=== PATIENT | female | born 1990 | race Caucasian/White ===

== ENCOUNTER → 2019-03-29 10:36 | Outpatient (BNVA) | payer MEDICAID, SELFPAY | PROVIDERS: Family Provider Nurse Practitioner Family; PCP Nurse Practitioner Family; Visit Provider Nurse Practitioner Women's Health | DX: Z30.432 Encounter for removal of intrauterine contraceptive device (principal); N92.1 Excessive and frequent menstruation with irregular cycle; A74.9 Chlamydial infection, unspecified | CPT/HCPCS: 84443; 87491 ==

== ENCOUNTER → 2019-04-29 13:09 | Outpatient (BNVA) | payer SELFPAY | PROVIDERS: Family Provider Nurse Practitioner Family; PCP Nurse Practitioner Family; Referring Provider Obstetrics & Gynecology Female Pelvic Medicine and Reconstructive Surgery; Visit Provider Obstetrics & Gynecology Female Pelvic Medicine and Reconstructive Surgery | DX: N92.1 Excessive and frequent menstruation with irregular cycle (principal) | CPT/HCPCS: 85025 ==

== ENCOUNTER → 2019-05-07 13:20 | Outpatient (BNVA) | payer SELFPAY | PROVIDERS: Family Provider Nurse Practitioner Family; PCP Nurse Practitioner Family; Visit Provider Nurse Practitioner Women's Health | DX: A74.9 Chlamydial infection, unspecified (principal); N92.1 Excessive and frequent menstruation with irregular cycle | CPT/HCPCS: 87491; 87591; 87661 ==

== ENCOUNTER → 2019-05-22 13:16 | Outpatient (BNVA) | payer MEDICAID, SELFPAY | PROVIDERS: Family Provider Nurse Practitioner Family; PCP Nurse Practitioner Family; Visit Provider Family Medicine | DX: R04.2 Hemoptysis (principal) | CPT/HCPCS: 80053; 85025 ==

== ENCOUNTER → 2019-10-03 15:28 | Outpatient (BNVA) | payer MEDICAID, SELFPAY | PROVIDERS: Family Provider Nurse Practitioner Family; PCP Nurse Practitioner Family; Visit Provider Nurse Practitioner Women's Health | DX: A74.9 Chlamydial infection, unspecified (principal); N92.1 Excessive and frequent menstruation with irregular cycle; N93.9 Abnormal uterine and vaginal bleeding, unspecified; N76.0 Acute vaginitis; B96.89 Other specified bacterial agents as the cause of diseases classified elsewhere | CPT/HCPCS: 87491; 87591; 87661 ==

== ENCOUNTER → 2019-10-10 11:55 | Outpatient (BNVA) | payer MEDICAID, SELFPAY | PROVIDERS: Family Provider Nurse Practitioner Family; PCP Nurse Practitioner Family; Visit Provider Nurse Practitioner Women's Health | DX: A74.9 Chlamydial infection, unspecified (principal); N92.1 Excessive and frequent menstruation with irregular cycle; N93.9 Abnormal uterine and vaginal bleeding, unspecified; B96.89 Other specified bacterial agents as the cause of diseases classified elsewhere; N76.0 Acute vaginitis | CPT/HCPCS: 85025 ==

== ENCOUNTER 2019-11-12 06:40 | Day surgery (SDC) | payer MEDICAID, SELFPAY ==
[2019-11-07 12:10] VITALS: BMI 21.5
--- NOTE | 2019-11-07 12:39 | ANES.PREANE2 ---
Pre-Anesthetic Assessment Pre-Anesthetic Assessment: Height/Weight: Height 1.78 m Weight 68.039 kg Preop Diagnosis: Menorrhagia with irregular cycles Proposed Procedure: Operation Date: 11/12/19 09:10 Proposed Procedures p Hysteroscopy w/ Ablation w/ Novasure 56202 N92.1(Not Applicable) - Reuben Carey MD Familial anesthetic complications: None Social: Social History: Tobacco and No alcohol Exam: Pre-Anes Outpt Exam: alert, oriented x 3, clear to auscultation bilaterally and regular rate & rhythm Airway: Cervical ROM: WNL MP: 1 Dentition: Full Pulmonary: Pulmonary: None reported CV/HEM: CV/HEM: None reported : : None reported Hepatic: Hepatic: None reported GI: GI: None reported Metabolic: Metabolic: None reported Musc/skel: Musc/skel: None reported Neuropsych: Neuropsych: None reported Anesthetic Plan: ASA status: 1 Anesthesia: MAC Risk of > 500 ml blood loss (7ml/kg in children): No PFSH Anesthesia PFSH: Medical History (Updated 10/12/19 @ 19:37 by Reuben Carey MD) Chlamydia 12/2018- positive 03/2019- positive 06/2019- needs rescreen Menorrhagia with irregular cycle Surgical History History of adenoidectomy History of tubal ligation 10/2014 [place] teeth extracted Family History Grandfather Diabetes maternal Hyperlipidemia maternal Hypertension maternal Grandmother Diabetes maternal Hyperlipidemia maternal Hypertension maternal Thyroid condition maternal Uterine cancer maternal Breast cancer maternal and paternal Mother Thyroid condition Uterine cancer Family/Other Breast cancer Paternal aunt Social History Smoking and tobacco status: current every day smoker cigarettes Packs smoked per day: 2 Alcohol intake: current Alcohol intake frequency: holidays/special occasions only Substance/Drug Use: never Desire information about substance/drug rehabilitation?: No Data Anesthesia Cardiac Studies: No Data to Display
[2019-11-07 12:43] LABS: Basophils # 0.1 10^3/uL (0.0-0.1); Basophils % 1.1 %; Eosinophils # 0.1 10^3/uL (0.0-0.8); Eosinophils % 1.7 %; Hemoglobin 15.6 g/dL (11.5-15.3); Lymphocytes % 44.2 %; Mean Corpuscular HGB Conc 33.2 g/dL (30.0-36.0); Mean Corpuscular Hemoglobin 29.5 pg (28.0-34.0); Mean Corpuscular Volume 88.8 fL (81-99); Mean Platelet Volume 11.2 fL (7.4-10.4); Monocytes # 0.6 10^3/uL (0.2-0.9); Monocytes % 12.8 %; Neutrophils # 1.85 10^3/uL (1.8-7.7); Nucleated Red Blood Cells % 0 %; Platelet Count 222 10^3/cmm (130-400); Red Blood Count 5.29 10^6/uL (4.1-5.3); Red Cell Distribution Width 12.9 % (12.1-15.1); White Blood Count 4.6 10^3/uL (4.0-10.0)
--- NOTE | 2019-11-12 07:01 | P.ANESUD_ITS ---
Pre-Anesthetic Update Pre-Anesthetic Assessment: Date of Surgery/Procedure: 11/12/19 Preop Latrice gnosis: Menorrhagia with irregular cycles Proposed Procedure: Operation Date: 11/12/19 08:10 Proposed Procedures p Hysteroscopy w/ Ablation w/ Novasure 85937 N92.1(Not Applicable) - Reuben Carey MD Any changes to Pre-Anesthetic Assessment?: No Last Intake: NPO > 8 hrs Exam: Pre-Anes Outpt Exam: alert, oriented x 3, clear to auscultation bilaterally and regular rate & rhythm Cardiac Studies: No Data to Display
[2019-11-12 07:02] VITALS: BP 123/70; PULSE 72; RESP 18; TEMP 36.8; O2SAT 99
[2019-11-12 07:05] LABS: OR HCG Qualitative Urine Negative (Negative)
--- NOTE | 2019-11-12 07:08 | W.PM.OPSUD ---
Surgery/Procedure H&P Update DATE OF PROCEDURE: November 12, 2019 DATE H&P PERFORMED: 10/28/19 H&P UPDATE INFORMATION: I have reviewed H&P completed within last 30 days, I have examined patient prior to procedure, No changes to prior documentation and H[place] is in [facility] [place] date indicated PREOP DIAGNOSIS: Menorrhagia with irregular cycles PLANNED PROCEDURE: Operation Date: 11/12/19 08:10 Proposed Procedures p Hysteroscopy w/ Ablation w/ Novasure 77595 N92.1(Not Applicable) - Reuben Carey MD
[2019-11-12] MEDS: sodium chloride 0.9% 1,000 ML 30 ML IV (07:10)
[2019-11-12] MEDS: ketorolac 30 mg/mL INJ IVP (07:10)
--- NOTE | 2019-11-12 08:54 | P.OP_ITS ---
Operative Report Date of procedure: November 12, 2019 Pre-op Diagnosis: Menorrhagia with irregular cycles Post-op Diagnosis: Menorrhagia with irregular cycles Procedure Done: Hysteroscopy with endometrial ablation with NovaSure, Paracervical block Pathology: None. Surgeon: Reuben Carey Batch Or Continuous Still Operator: None Anesthesia: MAC and Other (Paracervical block with 2% lidocaine with epinephrine) Estimated blood loss (mL): 5 IV fluids (mL): 500 Complications: None Findings: Second-degree uterine prolapse with slightly retroflexed uterus. No palpable adnexal masses noted. Normal-appearing endometrial cavity. No polyps or masses noted. Both tubal ostia identified. Brief History: Patient is a 29-year-old white female 2, para 2-0-0-2, status post tubal ligation. She initially presented to the office on 12/26/2018 complaining of heavy vaginal bleeding that have been present for approximately 1 year. She would typically bleed every 2 weeks with the bleeding episodes lasting up to 12 days at a time. She was changing a tampon every 2-3 hours with passage of up to quarter sized clots. She reported that she would occasionally skip 1 to 2 months as well. She had a normal pelvic exam at that time. Ultrasound was performed in 12/2018 and was normal. She was initially treated with a Mirena IUD in 01/2019. With the IUD, she bled almost daily. She was treated with high-dose ibuprofen without improvement. She was then switched to OCPs in 03/2019 after removal of t he IUD and has continued to have heavy bleeding. She is now presenting for next step in treatment, being an endometrial ablation. Procedure: The patient was taken to the operating room where IV sedation was started. She was prepped and draped in the usual sterile fashion in the dorsal supine position with legs in Dionte style stirrups. Sequential compression boots had been placed prior to starting the case. Patient had voided just before coming to the operating room. Exam under anesthesia was performed and the patient was noted to have second- degree uterine prolapse with slightly retroflexed uterus. A weighted speculum was placed in the vagina and the cervix was grasped with a single-tooth tenaculum. A paracervical block was performed with a total of 12 mL of 2% lidocaine with epinephrine used. The cervix was serially dilated until a operative hysteroscope could be passed. Crystalloid solution was used as a distention media. The endometrial cavity was inspected and appeared normal. Both tubal ostia were identified. No masses or polyps noted. Using the NovaSure sound, endometrial cavity length was measured at 5 cm. The N ovaSure device was inserted and device was deployed. The device was moved up and down and left and right until no further with adjustment occurred. Uterine width was measured at 3.7 cm. Settings were entered in the NovaSure machine and wattage was set at [address] [place]. Cavity integrity check was performed and integrity confirmed. Device was then activated. Total treatment time was 37 seconds. Device was removed. The tenaculum was removed and there was minimal bleeding from the tenaculum site. Patient tolerated the procedure well. Sponge and needle counts were correct. DRAINS: None POSTOPERATIVE STATUS: The patient was transferred to the recovery room in satisfactory condition DISPOSITION: Discharge to home when criteria was met. FOLLOWUP APPOINTMENT: Followup appointment had been scheduled on 11/27/2019 in my office. MEDICATIONS: Tramadol 50 mg, 1 to 2 tablets every 6 hours as needed for pain, #10, 0 refills Ibuprofen 800 mg, 1 tablet 3 times a day as needed for pain, #30, 0 refills
[2019-11-12 09:06] VITALS: BP 102/54; PULSE 82; RESP 18; TEMP 36.1; O2SAT 100
[2019-11-12 09:25] VITALS: BP 113/70; PULSE 69; RESP 18; O2SAT 100
--- NOTE | 2019-11-12 12:02 | ANE.PACU2 ---
Inpatient post-anesthesia follow up: Airway intact: Yes Vital signs: Temperature 97.0 F Pulse Rate 69 Respiratory Rate 18 Blood Pressure 113/70 Pulse Oximetry 100 Oxygen Delivery Me thod Room Air Oxygen Flow Rate Fraction of Inspir ed Oxygen Hydration adequate: Yes Nausea and vomiting: No Pain level: 2 Mental status: Baseline
== END 2019-11-12 09:35 | disposition home or self-care (01) ==
PROVIDERS: PCP Nurse Practitioner Family; Visit Provider Obstetrics & Gynecology
PROC: 0U598ZZ Destruction of Uterus, Via Natural or Artificial Opening Endoscopic (ICD-10-PCS; CPT 58563; principal; 2019-11-12 08:10)
DX: N92.1 Excessive and frequent menstruation with irregular cycle (principal); G89.18 Other acute postprocedural pain; N81.2 Incomplete uterovaginal prolapse; Z98.51 Tubal ligation status; F17.210 Nicotine dependence, cigarettes, uncomplicated
CPT/HCPCS: 58563; 12345; 81025; 84703; 85025; 96374; J1100; J1885; J2250; J2405; J2704; J3010; J7030

== ENCOUNTER → 2020-10-16 10:14 | Outpatient (BNVA) | payer MEDICAID, SELFPAY | PROVIDERS: PCP Nurse Practitioner Family; Visit Provider Nurse Practitioner Women's Health | DX: R10.2 Pelvic and perineal pain (principal) | CPT/HCPCS: 76830; 87491; 87591; 87661 ==

== ENCOUNTER → 2020-11-12 10:29 | Outpatient (BNVA) | payer MEDICAID, SELFPAY | PROVIDERS: PCP Nurse Practitioner Family; Visit Provider Obstetrics & Gynecology | DX: R10.2 Pelvic and perineal pain (principal); Z20.822 Contact with and (suspected) exposure to COVID-19 | CPT/HCPCS: 87635 ==

== ENCOUNTER 2020-11-18 14:32 | Observation (INO) | payer MEDICAID, SELFPAY ==
[2020-11-17 13:23] VITALS: BMI 19.6
[2020-11-18] VITALS (22 sets, daily range): BP systolic 104–151; BP diastolic 60–91; PULSE 66–91; RESP 16–26; TEMP 36.2–36.8; O2SAT 97–100; BMI 19.6
[2020-11-18] MEDS: sodium chloride 0.9% 500 ML IV (11:00)
[2020-11-18] MEDS: scopolamine 1.5 Patch 1 PATCH TRANSDERMA (11:06)
[2020-11-18 11:08] LABS: OR HCG Qualitative Urine Negative (Negative)
[2020-11-18 11:24] LABS: Add Urine Microscopic? NO; Charge for UA Resulting for Rev
[2020-11-18] MEDS: sodium chloride 0.9% 1,000 ML 30 ML IV (11:29)
[2020-11-18 11:30] LABS: Basophils # 0.1 10^3/uL (0.0-0.1); Basophils % 1.5 %; Eosinophils # 0.1 10^3/uL (0.0-0.8); Hematocrit 47.3 % (37.0-47.0); Lymphocytes # 2.5 10^3/uL (0.8-4.8); Lymphocytes % 41.1 %; Mean Corpuscular HGB Conc 33.8 g/dL (30.0-36.0); Mean Corpuscular Hemoglobin 30.4 pg (28.0-34.0); Mean Corpuscular Volume 89.8 fl (81-99); Mean Platelet Volume 11.1 fL (7.4-10.4); Monocytes # 0.7 10^3/uL (0.2-0.9); Monocytes % 11.1 %; Neutrophils # 2.69 10^3/uL (1.8-7.7); Neutrophils % 44.1 %; Nucleated Red Blood Cells % 0 %; Platelet Count 242 10^3/cmm (130-400); Red Blood Count 5.27 10^6/uL (4.1-5.3); Red Cell Distribution Width 12.4 % (12.1-15.1); White Blood Count 6.1 10^3/uL (4.0-10.0)
[2020-11-18 11:34] LABS: Bilirubin Urine Neg (Negative); Blood Urine Neg (Negative); Glucose Urine UA Norm (Normal); Ketones Urine Negative (Negative); Leukocyte Esterase Urine Negative (Negative); Nitrate Urine Negative (Negative); Protein Urine Neg (Negative); Specific Gravity, Urine 1.005 (1.005-1.030); Urine Appearance Clear (CLEAR); Urine Color Straw (Yellow); Urobilinogen Urine Norm (Negative); pH Urine 7 (5-7)
[2020-11-18 11:47] LABS: Blood Urea Nitrogen 13 mg/dL (6-20); Calcium 9.2 mg/dL (8.5-10.5); Carbon Dioxide 28 mmol/L (22-29); Chloride 101 mmol/L (98-107); Glomerular Filtration Rate 118.2 mL/min (90-130); Glucose 80 mg/dL (65-115); Osmolality Calculated 285 mOsm/kg (285-295); Sodium 138 mmol/L (136-145)
[2020-11-18 11:55] LABS: Anion Gap 13.3 (5-19); Potassium 4.3 mmol/L (3.5-5.1)
--- NOTE | 2020-11-18 12:02 | ANES.PREANE2 ---
Pre-Anesthetic Assessment Pre-Anesthetic Assessment: Height/Weight: Height 1.78 m Weight 62.142 kg Temp Pulse Resp BP Pulse Ox 98.1 F 72 16 116/75 98 11/18/20 10:32 11/18/20 10:32 11/18/20 10:32 11/18/20 10:32 11/18/20 10:32 Preop Diagnosis: Chronic pelvic pain Proposed Procedure: Operation Date: 11/18/20 11:55 Proposed Procedures p Laparoscopy Diagnostic 32145 R10.2(Not Applicable) - Eduardo Parks MD Familial anesthetic complications: None Was Beta Britta taken within 24 hours: N/A Was Clonidine taken within 24 hours: N/A Last intake: Intake Last Liquid Date 11/17/20 Last Liquid Time 21:30 Last Solid Date 11/17/20 Last Solid Time 18:00 Social: Social History: Tobacco and No alcohol Exam: Pre-Anes Outpt Exam: alert, oriented x 3, clear to auscultation bilaterally and regular rate & rhythm Airway: Cervical ROM: WNL MP: 1 Dentition: Full Anesthetic Plan: ASA status: 1 Anesthesia: General Risk of > 500 ml blood loss (7ml/kg in children): No Meds/Allergies Current Medications: Current Medications Generic Name Dose Route Start Last Admin Trade Name Freq PRN Reason Stop Dose Admin Sodium Chloride 1,000 mls @ 30 ml s/hr 11/18/20 10:30 11/18/20 11:29 Sodium Chloride 0.9% IV 11/19/20 10:29 30 mls/hr .Q24H TERRY Administration PFSH Anesthesia PFSH: Medical History Chlamydia 12/2018- positive 03/2019- positive 06/2019- needs rescreen Menorrhagia with irregular cycle Surgical History History of adenoidectomy History of tubal ligation 10/2014 S/P endometrial ablation (11/12/19) Hysteroscopy with NovaSure endometrial ablation. Performed by Dr. Carey at [facility] [place], [place] teeth extracted Family History Grandfather Diabetes maternal Hyperlipidemia maternal Hypertension maternal Grandmother Diabetes maternal Hyperlipidemia maternal Hypertension maternal Thyroid condition maternal Uterine cancer maternal Breast cancer maternal and paternal Mother Thyroid condition Uterine cancer Family/Other Breast cancer Paternal aunt Social History Smoking and tobacco status: current every day smoker cigarettes Packs smoked per day: 2 Alcohol intake: current Alcohol intake frequency: holidays/special occasions only Other details last substance use: Denies drug use Data Anesthesia CBC & Chem 7: 11/18/20 10:48 11/18/20 10:48 Other Labs: Laboratory Results - last 48 hr 11/18/20 11/18/20 11/18/20 10:24 10:38 10:48 WBC 6.1 RBC 5.27 Hgb 16.0 H Hct 47.3 H MCV 89.8 MCH 30.4 MCHC 33.8 RDW 12.4 Plt Count 242 MPV 11.1 H Neut % (Auto) 44.1 Lymph % (Auto) 41.1 [place] % (Auto) 11.1 Eos % (Auto) 2.0 Baso % (Auto) 1.5 Neut # (Auto) 2.69 Lymph # (Auto) 2.5 [place] # (Auto) 0.7 Eos # (Auto) 0.1 Baso # (Auto) 0.1 Nucleated RBC % (auto) 0 Nucleated RBCs # 0.0 Sodium Potassium Chloride Carbon Dioxide Anion Gap BUN Creatinine GFR Calculation Glucose Calculated Osmolality Calcium Urine Color Straw Urine Appearance Clear Urine pH 7 Ur Specific [place] 1.005 Urine Protein Neg Urine Glucose (UA) Norm Urine Ketones Negative Urine Blood Neg Urine Nitrate Negative Urine Bilirubin Neg Urine Urobilinogen Norm Ur Leukocyte Esterase Negative Urine HCG, Qual Negative 11/18/20 10:48 WBC RBC Hgb Hct MCV MCH MCHC RDW Plt Count MPV Neut % (Auto) Lymph % (Auto) [place] % (Auto) Eos % (Auto) Baso % (Auto) Neut # (Auto) Lymph # (Auto) [place] # (Auto) Eos # (Auto) Baso # (Auto) Nucleated RBC % (auto) Nucleated RBCs # Sodium 138 Potassium 4.3 Chloride 101 Carbon Dioxide 28 Anion Gap 13.3 BUN 13 Creatinine 0.6 GFR Calculation 118.2 Glucose 80 Calculated Osmolality 285 Calcium 9.2 Urine Color Urine Appearance Urine pH Ur Specific [place] Urine Protein Urine Glucose (UA) Urine Ketones Urine Blood Urine Nitrate Urine Bilirubin Urine Urobilinogen Ur Leukocyte Esterase Urine HCG, Qual Cardiac Studies: No Data to Display
--- NOTE | 2020-11-18 12:23 | W.PM.OPSUD ---
Surgery/Procedure H&P Update DATE OF PROCEDURE: November 18, 2020 DATE H&P PERFORMED: 11/17/20 H&P UPDATE INFORMATION: I have reviewed H&P completed within last 30 days, I have examined patient prior to procedure and No changes to prior documentation PREOP DIAGNOSIS: Chronic pelvic pain PLANNED PROCEDURE: Operation Date: 11/18/20 11:55 Proposed Procedures p Laparoscopy Diagnostic 22265 R10.2(Not Applicable) - Eduardo Parks MD
--- NOTE | 2020-11-18 14:05 | P.OP_ITS ---
Operative Report Date of procedure: November 18, 2020 Pre-op Diagnosis: Chronic pelvic pain Post-op Diagnosis: Endometriosis Retroverted uterus Post-op Findings: Endometriosis Retroverted uterus Procedure Done: Diagnostic laparoscopy Pathology: none sent Surgeon: Eduardo Parks MD Estimated blood loss (mL): 100 IV fluids (mL): 800 Urine output (mL): 200 Complications: Uterine perforation. Condition: stable Disposition: PACU Brief History: Mrs. Rahman 30-year-old female status post tubal ligation with a history of chronic pelvic pain Procedure: After informed consent, the patient was taken to the operating room where general anesthesia was administered. The patient was examined under anesthesia and found to have a normal uterus with normal adnexa. She was placed in the dorsal lithotomy position and prepped and draped in sterile fashion. Pre- Procedure Time-Out verifying the correct patient identity, correct procedure verified with consent, correct site and side, correct patient position, availability of correct implants and any special equipment or requirements was performed and acknowledge by the OR team. A weighted speculum was placed in the vagina, and the anterior lip of cervix was grasped with the single toothed tenaculum. A uterine manipulator was advanced into the endocervical. Tenaculum was removed after uterine manipulator was secured. The speculum was removed from the vagina. An intraumbilical incision was made with a scalpel. While tenting up on the abdomen, a Verres needle with sleeve was admitted into the intra-abdominal cavity. A saline drop test was performed and noted to be within normal limits. Pneumoperitoneum was attained with 4 liters of carbon dioxide. The Verres needle was removed. A 5 mm trocar and sleeve were admitted into the abdomen and laparoscopic confirmation of location was achieved, A second incision was made 3 cm above the symphysis pubis, and a 5 mm trocar and sleeve were admitted into the abdomen under direct, laparoscopic visualization without complication. A survey revealed normal abdominal anatomy. A 5 mm blunt probe was advanced through the second trocar sleeve, and light manipulation of ovaries and uterus to assess the posterior aspects was performed. Butpelvic survey shows retroverted uterus, with serosal white endometriosis lesions and the tip of the uterine manipulator noted at the fundus. Normal left and right adnexa. After the uterine manipulator was withdraw the small perforation was plug with foam that controlled the minimal bleeding. The pelvis was irrigated and suction. Carbon dioxide was allowed to escape from the abdomen. The instruments were removed, and skin cover with a bandage. The instruments were removed from the vagina, and excellent hemostasis was noted. The patient tolerated the procedure well, and sponge, lap and needle count were correct times two. The patient taken to the recovery room in good condition.
[2020-11-18] MEDS: HYDROmorphone 1 mg/mL INJ 1 mL 0.5 MG IVP ×4 (14:16→14:46)
[2020-11-18] MEDS: ketorolac 30 mg/mL INJ IVP ×2 (15:37→20:59)
[2020-11-18] MEDS: HYDROcodone-acetaminophen 5-325 mg Tablet PO ×2 (15:37→20:58)
[2020-11-18] MEDS: nicotine 21 mg Patch 1 PATCH TRANSDERMA (15:39)
--- NOTE | 2020-11-18 17:00 | ANE.PACU2 ---
Inpatient post-anesthesia follow up: Airway intact: Yes Vital signs: Temperature 98.0 F Pulse Rate 65 Respiratory Rate 17 Blood Pressure 92/52 Pulse Oximetry 99 Oxygen Delivery Me thod Room Air Oxygen Flow Rate Fraction of Inspir ed Oxygen Hydration adequate: Yes Nausea and vomiting: No Pain level: 2 Mental status: Baseline
[2020-11-18] MEDS: dextrose 5%-lactated ringers 1,000 ML 125 ML IV (22:23)
[2020-11-19] MEDS: HYDROcodone-acetaminophen 5-325 mg Tablet PO ×2 (02:37→08:01)
[2020-11-19] MEDS: ketorolac 30 mg/mL INJ IVP (02:37)
[2020-11-19 03:51] VITALS: BP 92/52; PULSE 65; TEMP 36.7; O2SAT 99
[2020-11-19 05:26] LABS: Hematocrit 37.2 % (37.0-47.0); Hemoglobin 12.8 g/dL (11.5-15.3); Mean Corpuscular HGB Conc 34.4 g/dL (30.0-36.0); Mean Corpuscular Hemoglobin 30.4 pg (28.0-34.0); Mean Corpuscular Volume 88.4 fl (81-99); Platelet Count 222 10^3/cmm (130-400); Red Blood Count 4.21 10^6/uL (4.1-5.3); Red Cell Distribution Width 12.4 % (12.1-15.1)
[2020-11-19 08:00] VITALS: BP 106/68; PULSE 60; RESP 18; TEMP 36.6
[2020-11-19] MEDS: ibuprofen 800 mg tablet PO (08:02)
[2020-11-19] MEDS: docusate sodium 100 mg Capsule PO (08:02)
--- NOTE | 2020-11-19 09:15 | PM.OBGYDC ---
Discharge Providers STONER HAND Date of Admission: 11/18/20 14:32 Date of Discharge: 11/19/20 Attending Provider at Admission: Eduardo Parks MD Attending Provider at Discharge: Eduardo Parks MD Primary Care Provider: MARIO Parks Reason for Visit Reason for Visit: Pelvic pain Hospital Course Hospital Course Mrs. Rahman 30-year-old female with a history of chronic pelvic pain, admitted for diagnostic laparoscopy. The procedure was performed and complicated by uterine perforation due to cavity and adhesions from previous endometrial ablation. Bleeding was controlled with foam at the perforation site. Overnight observation uneventful. Patient doing well, pain under control, tolerating diet, ambulating without difficulty and anxious to go home so she can smoke a cigarette. Physical Exam Narrative: EXAM NARRATIVE: GA: Alert and oriented ?3. HEENT: WNL. Heart: Regular rate and rhythm. Lungs: Clear to auscultation bilaterally. Abdomen: Bowel sounds present, nontender, minimal tenderness, incision clean and dry, no redness, pain or edema. CRATE MAKER: No bleeding. Extremities: No edema, no cyanosis, no calves pain. Urinary Catheter Management^: Singh: Cath Placed During This Visit: yes, but has since been removed by the nurse Reason for Continuing Indwelling Catheter: Decision to DC Catheter Date Urinary Catheter Removed: 11/19/20 Time Urinary Catheter Discontinued: 05:22 Discharge Data Data Completed and Pending: Pending at discharge Category Date Time Status ES surgery / GI i mages Routine Exams 11/18/20 10:49 Taken Labs from last 24 hours 11/19/20 11/18/20 11/18/20 05:15 10:48 10:48 WBC 13.0 H RBC 4.21 Hgb 12.8 Hct 37.2 MCV 88.4 MCH 30.4 MCHC 34.4 RDW 12.4 Plt Count 222 MPV 11.0 H Neut % (Auto) Lymph % (Auto) [place] % (Auto) Eos % (Auto) Baso % (Auto) Neut # (Auto) Lymph # (Auto) [place] # (Auto) Eos # (Auto) Baso # (Auto) Nucleated RBC % (a uto) Nucleated RBCs # Sodium 138 Potassium 4.3 Chloride 101 Carbon Dioxide 28 Anion Gap 13.3 BUN 13 Creatinine 0.6 GFR Calculation 118.2 Glucose 80 Calculated Osmolal ity 285 Calcium 9.2 Urine Color Urine Appearance Urine pH Ur Specific Gravit y Urine Protein Urine Glucose (UA) Urine Ketones Urine Blood Urine Nitrate Urine Bilirubin Urine Urobilinogen Ur Leukocyte [place] ase Urine HCG, Qual Blood Type O Positive Rho(D) Type Positive Antibody Screen Negative 11/18/20 11/18/20 11/18/20 10:48 10:38 10:24 WBC 6.1 RBC 5.27 Hgb 16.0 H Hct 47.3 H MCV 89.8 MCH 30.4 MCHC 33.8 RDW 12.4 Plt Count 242 MPV 11.1 H Neut % (Auto) 44.1 Lymph % (Auto) 41.1 [place] % (Auto) 11.1 Eos % (Auto) 2.0 Baso % (Auto) 1.5 Neut # (Auto) 2.69 Lymph # (Auto) 2.5 [place] # (Auto) 0.7 Eos # (Auto) 0.1 Baso # (Auto) 0.1 Nucleated RBC % (a uto) 0 Nucleated RBCs # 0.0 Sodium Potassium Chloride Carbon Dioxide Anion Gap BUN Creatinine GFR Calculation Glucose Calculated Osmolal ity Calcium Urine Color Straw Urine Appearance Clear Urine pH 7 Ur Specific Gravit y 1.005 Urine Protein Neg Urine Glucose (UA) Norm Urine Ketones Negative Urine Blood Neg Urine Nitrate Negative Urine Bilirubin Neg Urine Urobilinogen Norm Ur Leukocyte [place] ase Negative Urine HCG, Qual Negative Blood Type Rho(D) Type Antibody Screen Vitals: Last Vital Signs Temp 97.9 F 11/19/20 08:00 Pulse 60 11/19/20 08:00 Resp 18 11/19/20 08:00 BP 106/68 11/19/20 08:00 Pulse Ox 99 11/19/20 03:51 Discharge Plan Discharge Patient Disposition: Home Condition: Stable Prescriptions: New acetaminophen 325 mg capsule 325 mg PO Q4H PRN (Reason: fever or postop pain) Qty: 60 RF: 0 hydrocodone-acetaminophen 5-325 mg tablet 1 tab PO Q4H PRN (Reason: pain) Qty: 10 RF: 0 Continued ibuprofen 800 mg tablet 800 mg PO TID PRN (Reason: pain) Qty: 90 RF: 0 Discharge Orders: Discharge Order (Routine); Ordered 11/19/20 Ordered By: Eduardo Parks Referrals: Eduardo Parks MD [Physician] - 12/01/20 1:45 pm (Your 2 week post-op appointment is scheduled for 12/01/20 @1:45. Your 6 week post-op appointment is scheduled for 12/29/20 @1:00. ) Discharge Diet: Usual diet Discharge Activity: Increase activity as tolerated Patient Instructions: Endometriosis (DC), Exploratory Laparoscopy (DC), OB Discharge Report, OB Laproscopic Surgery - [facility], OB Food/Drug Interaction Guide, Opioid Safety Activity Restrictions/Additional Instructions: 1. Please call [facility] on next working day to make your post-operative appointment in 2 weeks. 2. Please stay home until you come back to the clinic on first post-operative check up. 3. Please follow instructions on your medications CAREFULLY. 4. If you have abdominal incision, do not cover it unless dressing is necessary because of drainage. OK to shower, but avoid bath. Leave steri-strips until they fall off. If they are still on one week after surgery, you may remove them. 5. If you had vaginal surgery or vaginal repair, Dr. Parks may instruct you to take SITZ bath. 6. Yellow, blood tinged odorous vaginal discharge is usually normal after hysterectomy or vaginal surgeries. 7. No sexual intercourse, tampons, or douches until you are completely released from the post-operative care. 8. Avoid constipation by eating right and maybe using some Metamucil or Milk of Magnesia. 9. All prescription refills are given during the working hours. Please do no wait till it runs out. Call the clinic at [phone] before your medication runs out. The clinic will get in touch with your doctor to prescribe medications if necessary. 10. Please remain within 40 mile radius from our hospital because emergencies do happen now and then during the post-operative period. 11. If you have stairs at home, take one step at a time slowly and minimize the number of trips. It helps to stay in one floor for the next few days. No lifting except what you can lift by one hand until you are released from the post-operative care. 12. Driving is discouraged until you are well healed. It may be 3-4 weeks before you feel strong enough to drive. You should be able to turn and look through the rear window without pain and you should be able to push the brake pedal very hard without pain before you drive. No fast rules, but SAFETY should be your primary concern. DO NOT drive if you are on sedating medications such as narcotics. 13. Call the clinic (during working hours) to make urgent appointment or go to the Emergency room, if any of the following occurs: i. Vaginal bleeding becomes heavy, more than a period. ii. Incision becomes red and sore, or drains pus. iii. Your temperature is over 100.4 or you have chill. iv. IV site becomes red and swollen (a little ``knot?? is usually OK) v. Persistent nausea and vomiting vi. Persistent constipation or diarrhea vii. Rash or allergic reaction to medications. Discharge Attestations STONER HAND Time Spent in Discharge Care*: greater than 30 min Coding Level of Care Code Acute Locomotive Mechanic for Darrius Andrade
[2020-11-19 09:30] VITALS: BP 104/63; PULSE 60; RESP 18; TEMP 36.6
== END 2020-11-19 09:30 | disposition home or self-care (01) ==
LOC: OBGYN 14:33
PROVIDERS: Admitting Provider Obstetrics & Gynecology; PCP Nurse Practitioner Family; Visit Provider Obstetrics & Gynecology
PROC: (CPT 49320; principal; 2020-11-18 11:55)
DX: N80.0 Endometriosis of uterus (principal); F17.210 Nicotine dependence, cigarettes, uncomplicated
CPT/HCPCS: 49320; 36415; 80048; 81003; 81025; 84703; 85025; 85027; 86850; 86900; 96365; G0378; J1100; J1170; J1885; J2405; J2704; J2710; J3010; J3490; J7030; J7040

== ENCOUNTER → 2021-01-15 14:04 | Outpatient (BNVA) | payer MEDICAID, SELFPAY | PROVIDERS: PCP Nurse Practitioner Family; Visit Provider Obstetrics & Gynecology | DX: N94.6 Dysmenorrhea, unspecified (principal); R10.2 Pelvic and perineal pain; Z20.822 Contact with and (suspected) exposure to COVID-19 | CPT/HCPCS: 87635 ==

== ENCOUNTER 2021-01-20 08:56 | Observation (INO) | payer MEDICAID, SELFPAY ==
[2021-01-18 09:40] VITALS: BMI 20.7
--- NOTE | 2021-01-18 09:51 | ANES.PREANE2 ---
Pre-Anesthetic Assessment Pre-Anesthetic Assessment: Height/Weight: Height 1.78 m Weight 65.771 kg Preop Diagnosis: Chronic pelvic pain Proposed Procedure: Operation Date: 01/20/21 07:00 Proposed Procedures p Total Vaginal Hysterectomy 90899 r10.2 N94.6(Not Applicable) - Eduardo Parks MD Familial anesthetic complications: None Social: Social History: Tobacco and No alcohol Exam: Pre-Anes Outpt Exam: alert, oriented x 3, clear to auscultation bilaterally and regular rate & rhythm Airway: MP: 2 Dentition: Full Anesthetic Plan: ASA status: 1 Anesthesia: General Risk of > 500 ml blood loss (7ml/kg in children): No PFSH Anesthesia PFSH: Medical History Chlamydia 12/2018- positive 03/2019- positive 06/2019- needs rescreen Menorrhagia with irregular cycle Surgical History History of adenoidectomy History of tubal ligation 10/2014 S/P endometrial ablation (11/12/19) Hysteroscopy with NovaSure endometrial ablation. Performed by Dr. Carey at [facility] [place] in [place], [place] teeth extracted Family History Grandfather Diabetes maternal Hyperlipidemia maternal Hypertension maternal Grandmother Diabetes maternal Hyperlipidemia maternal Hypertension maternal Thyroid condition maternal Uterine cancer maternal Breast cancer maternal and paternal Mother Thyroid condition Uterine cancer Family/Other Breast cancer Paternal aunt Social History (Updated 01/18/21 @ 07:57 by Faith Santoyo RN) Smoking and tobacco status: current every day smoker cigarettes Packs smoked per day: 2 Alcohol intake: current Alcohol intake frequency: holidays/special occasions only Substance/Drug Use: current Substance/Drug use frequency: daily Substance/Drug use type: Marijuana Other substance/drug use details: has a medical card Other details last substance use: Denies drug use Female Reproductive History: Date of last menstrual period: 12/23/19 Data Anesthesia Cardiac Studies: No Data to Display
[2021-01-18 09:53] LABS: OR HCG Qualitative Urine Negative (Negative)
[2021-01-20] VITALS (21 sets, daily range): BP systolic 99–119; BP diastolic 58–84; PULSE 60–97; RESP 12–29; TEMP 36.1–36.7; O2SAT 96–100
--- NOTE | 2021-01-20 06:23 | P.ANESUD_ITS ---
Pre-Anesthetic Update Pre-Anesthetic Assessment: Date of Surgery/Procedure: 01/20/21 Preop Latrice gnosis: Chronic pelvic pain, Endometriosis, Proposed Procedure: Operation Date: 01/20/21 07:00 Proposed Procedures p Total Vaginal Hysterectomy 86701 r10.2 N94.6(Not Applicable) - Eduardo Parks MD Any changes to Pre-Anesthetic Assessment?: No Labs Last 48hrs: Laboratory Results - last 48 hr 01/18/21 09:52 Urine HCG, Qual Negative Exam: Pre-Anes Outpt Exam: alert, oriented x 3, clear to auscultation bilaterally and regular rate & rhythm Cardiac Studies: No Data to Display
[2021-01-20 06:31] LABS: Add Urine Microscopic? NO; Charge for UA Resulting for Rev
[2021-01-20 06:37] LABS: Basophils # 0.1 10^3/uL (0.0-0.1); Basophils % 1.2 %; Eosinophils # 0.2 10^3/uL (0.0-0.8); Eosinophils % 3.7 %; Hematocrit 49.1 % (37.0-47.0); Hemoglobin 16.8 g/dL (11.5-15.3); Lymphocytes # 2.8 10^3/uL (0.8-4.8); Lymphocytes % 47.4 %; Mean Corpuscular HGB Conc 34.2 g/dL (30.0-36.0); Mean Corpuscular Volume 87.7 fl (81-99); Mean Platelet Volume 11.3 fL (7.4-10.4); Monocytes # 0.7 10^3/uL (0.2-0.9); Monocytes % 10.9 %; Neutrophils # 2.19 10^3/uL (1.8-7.7); Neutrophils % 36.6 %; Nucleated Red Blood Cells % 0 %; Platelet Count 219 10^3/cmm (130-400); Red Cell Distribution Width 12.6 % (12.1-15.1)
[2021-01-20] MEDS: sodium chloride 0.9% 500 ML IV (06:40)
[2021-01-20 06:58] LABS: Bilirubin Urine Neg (Negative); Blood Urine Neg (Negative); Glucose Urine UA Norm (Normal); Ketones Urine Negative (Negative); Leukocyte Esterase Urine Negative (Negative); Nitrate Urine Negative (Negative); Protein Urine Neg (Negative); Specific Gravity, Urine 1.025 (1.005-1.030); Urine Appearance Clear (CLEAR); Urine Color Yellow (Yellow); Urobilinogen Urine Norm (Negative); pH Urine 5 (5-7)
--- NOTE | 2021-01-20 06:59 | W.PM.OPSUD ---
Surgery/Procedure H&P Update DATE OF PROCEDURE: January 20, 2021 DATE H&P PERFORMED: 01/18/21 H&P UPDATE INFORMATION: I have reviewed H&P completed within last 30 days, I have examined patient prior to procedure and No changes to prior documentation PREOP DIAGNOSIS: Chronic pelvic pain, Endometriosis, PLANNED PROCEDURE: Operation Date: 01/20/21 07:00 Proposed Procedures p Total Vaginal Hysterectomy 08744 r10.2 N94.6(Not Applicable) - Eduardo Parks MD
[2021-01-20 07:00] LABS: Alanine Aminotransferase 11 U/L (0-33); Albumin Level 4.9 g/dL (3.5-5.2); Alkaline Phosphatase 56 IU/L (35-105); Anion Gap 13.8 (5-19); Aspartate Amino Transferase 13 U/L (0-32); Blood Urea Nitrogen 10 mg/dL (6-20); Calcium 9.7 mg/dL (8.5-10.5); Carbon Dioxide 26 mmol/L (22-29); Chloride 103 mmol/L (98-107); Globulin 3.2 g/dL (1.3-4.6); Glomerular Filtration Rate 84.8 mL/min (90-130); Glucose 87 mg/dL (65-115); OR HCG Qualitative Urine Negative (Negative); Osmolality Calculated 286 mOsm/kg (285-295); Potassium 3.8 mmol/L (3.5-5.1); Sodium 139 mmol/L (136-145); Total Bilirubin 0.5 mg/dL (0.15-1.2); Total Protein 8.1 g/dL (6.6-8.7)
[2021-01-20] MEDS: scopolamine 1.5 Patch 1 PATCH TRANSDERMA (07:02)
[2021-01-20] MEDS: sodium chloride 0.9% 1,000 ML 30 ML IV (07:03)
[2021-01-20] MEDS: ceFOXitin 2,000 MG in sodium chloride 0.9% (plus) 50 ML 100 MG IV (07:05)
--- NOTE | 2021-01-20 08:39 | PM.OP ---
Operative Report Date of procedure: January 20, 2021 Pre-op Diagnosis: Chronic pelvic pain, Endometriosis, Post-op diagnosis: same Post-op Findings: Normal size uterus Procedure Done: Total vaginal hysterectomy Specimens removed/disposition: Uterus Pathology: Uterus Surgeon: Eduardo Parks MD Anesthesia: General Estimated blood loss (mL): 100 IV fluids (mL): 800 Urine output (mL): 500 Complications: none Condition: stable Disposition: PACU Procedure: After informed consent and risks, benefits, indications and alternatives reviewed with the patient was taken to the operating room. The patient was placed in dorsal lithotomy position prepped, and draped in the usual sterile fashion. The pre-procedure timeout verifying the correct patient, procedure, site and side, could not requirements was performed and acknowledge by the OR team. A Singh catheter was placed. A Bookwalter vaginal retractor was placed into the vagina in usual manner visualize the cervix. Cervix was grasped with a single tooth tenaculum and circumferentially infiltrated with 2% lidocaine with epinephrine. Then cervix was circumferentially incised with bovie and the bladder was dissected off the pubovesical cervical fascia anteriorly with a sponge stick and Metzenbaum scissors. The anterior peritoneal reflection was identified and the anterior cul-de-sac was entered sharply with Metzenbaum scissors. The same procedure was performed posteriorly and a posterior colpotomy was made through the posterior cul-de-sac space without difficulty and the posterior blade of the Bookwalter vaginal retractor was advanced posteriorly into the cul-de-sac. At this time, the left and right uterosacral ligaments were isolated and ligated with 0 Vicryl. The Enseal device was placed over the uterosacral ligaments on either side and was then used in a serial fashion up through the cardinal ligaments bilaterally cross-clamped, cut, and sealed with the Enseal device. Finally, the uterine arteries were cross-clamped, sealed and transected with the Enseal device. Hemostasis was assured. The broad ligaments were then serially clamped, sealed and cut with the Enseal device on both sides. Excellent hemostasis was visualized. Both cornua were clamped, sealed and cut with the Enseal device. Then the pedicles were then suture ligated with excellent hemostasis. The uterus was excised and submitted for pathologic evaluation. No other abnormalities were noted in the pelvic cavity. The peritoneum was then closed in a pursestring fashion with 0 Vicryl suture. The vaginal cuff angles were closed with [id number] #0 Vicryl suture on both sides and transfixed with the ipsilateral cardinal and uterosacral ligaments. Patient was given methylene blue IV. The remainder of the vaginal cuff was closed with #0 Vicryl in a running locked fashion. At this time, instruments were removed from the vagina at hemostasis assured. Singh catheter was noted yielding clear aidan urine. The patient was taken out of dorsal lithotomy position and awakened from the general anesthesia. The patient tolerated the procedure well and was taken to the PACU recovery room in a stable condition. Sponge, lap, needle and instruments counts were correct x3.
[2021-01-20] MEDS: meperidine 50 mg/mL INJ 12.5 MG IVP (08:54)
[2021-01-20] MEDS: HYDROmorphone 1 mg/mL INJ 1 mL 0.5 MG IVP ×2 (09:10→09:20)
[2021-01-20] MEDS: sodium chloride 0.9% 1,000 ML 100 ML IV (09:19)
--- NOTE | 2021-01-20 09:27 | SUR.PHASEI ---
PT AWAKE ALERT STATES PAIN IS BETTER, VSS ABD SOFT PT TAKING ICE CHIPS SEE PAIN MEDS GIVEN EARLIER ALSO WARM BLANKETS X 4 ON ADMIT SEE DEMEROL GIVEN FOR SHIVERING PT NOT SHIVERING NOW.
[2021-01-20] MEDS: ketorolac 30 mg/mL INJ IVP ×3 (10:14→23:41)
[2021-01-20] MEDS: HYDROcodone-acetaminophen 5-325 mg Tablet PO ×2 (14:11→20:43)
--- NOTE | 2021-01-20 14:41 | ANE.PACU2 ---
Inpatient post-anesthesia follow up: Airway intact: Yes Vital signs: Temperature 97.9 F Pulse Rate 97 Respiratory Rate 16 Blood Pressure 110/76 Pulse Oximetry 97 Oxygen Delivery Me thod Room Air Oxygen Flow Rate 8 Fraction of Inspir ed Oxygen Hydration adequate: Yes Nausea and vomiting: No Pain level: 1 Mental status: Baseline
[2021-01-20] MEDS: dextrose 5%-lactated ringers 1,000 ML 125 ML IV (17:09)
[2021-01-20] MEDS: docusate sodium 100 mg Capsule PO (17:10)
[2021-01-20] MEDS: nicotine 21 mg Patch 1 PATCH TRANSDERMA (17:51)
[2021-01-21] MEDS: HYDROcodone-acetaminophen 5-325 mg Tablet PO (03:37)
[2021-01-21 05:06] VITALS: BP 112/56; PULSE 68; RESP 16; O2SAT 100
[2021-01-21 05:11] LABS: Hematocrit 34.7 % (37.0-47.0); Hemoglobin 11.9 g/dL (11.5-15.3); Mean Corpuscular HGB Conc 34.3 g/dL (30.0-36.0); Mean Corpuscular Hemoglobin 30.4 pg (28.0-34.0); Mean Corpuscular Volume 88.7 fl (81-99); Mean Platelet Volume 11.2 fL (7.4-10.4); Platelet Count 184 10^3/cmm (130-400); Red Blood Count 3.91 10^6/uL (4.1-5.3); Red Cell Distribution Width 12.7 % (12.1-15.1); White Blood Count 12.4 10^3/uL (4.0-10.0)
[2021-01-21] MEDS: ibuprofen 800 mg tablet PO (08:59)
[2021-01-21] MEDS: docusate sodium 100 mg Capsule PO (08:59)
--- NOTE | 2021-01-21 11:08 | PM.OBGYDC ---
Discharge Providers ACADEMIC SUPPORT DIRECTOR Date of Admission: 01/20/21 08:56 Date of Discharge: 01/21/21 Attending Provider at Admission: Eduardo Parks MD Attending Provider at Discharge: Eduardo Parks MD Primary Care Provider: MARIO Parks Diagnoses at Discharge Discharge Diagnosis (1) Status post vaginal hysterectomy: Status: Acute Permanent problem details: Postoperative day 1 Reason for Visit Reason for Visit: total vaginal hysterectomy Hospital Course Hospital Course Mrs. Goodman jung with chronic pelvic pain, post ablation pain syndrome admitted for planned total vaginal hysterectomy. The procedure was performed without complication. She is postoperative day 1, afebrile and hemodynamically stable. Overnight observation was uneventful. Tolerating diet well. Ambulating without difficulty. Urine output adequate. Reffers she is anxious to go home so she can have a cigarette. She was counseled regarding both smoking cessation and reminded the hospital has free smoking cessation classes. Physical Exam Narrative: EXAM NARRATIVE: GA: Alert and oriented ?3. HEENT: WNL. Heart: Regular rate and rhythm. Lungs: Clear to auscultation bilaterally. Abdomen: Bowel sounds present, nontender. PLASTER MACHINE OPERATOR: No bleeding. Extremities: No edema, no cyanosis, no calves pain. Urinary Catheter Management^: Singh: Cath Placed During This Visit: yes, but has since been removed by the nurse Reason for Continuing Indwelling Catheter: Decision to DC Catheter Urinary Catheter Date of Insertion: 01/20/21 Urinary Catheter Time of Insertion: 07:15 Date Urinary Catheter Removed: 01/21/21 Time Urinary Catheter Discontinued: 04:50 History History History 2 Term 2 Miscarriages/Ectopic 0 0 Living Children 2 Past Pregnancies Del. Date GA/Weeks Outcome Route Wt Inf Gender Labor Lgth Comp. Anesthesia Location 12/30/10 40 live - full term Vaginal 3.685 kg Male [facility] 09/04/14 38 live - full term Vaginal 3.515 kg Female [facility] Delivery Date: 12/30/10 - 1. 12/30/2010. Male, 8 lbs. 2 oz., 40-3/7 weeks gestation. Spinal. Vacuum-assisted vaginal delivery. Performed by Dr. Reuben Carey at [facility] in [place], [place]. [facility] Delivery Date: 09/04/14 2. 09/04/2014. Female, 7 lbs. 12 oz., 38-5/7 weeks gestation. Epidural. Vaginal delivery. Delivered by Dr. Reuben Carey at [facility] in [place], [place]. The was complicated by mild preeclampsia at delivery. [facility] Discharge Data Data Completed and Pending: Pending at discharge Category Date Time Status Pathology: Surgic al [PTH] Routine Pth 01/20/21 08:05 Received Labs from last 24 hours 01/21/21 04:50 WBC 12.4 H RBC 3.91 L Hgb 11.9 Hct 34.7 L MCV 88.7 MCH 30.4 MCHC 34.3 RDW 12.7 Plt Count 184 MPV 11.2 H Vitals: Last Vital Signs Temp 97.9 F 01/20/21 18:36 Pulse 68 01/21/21 05:06 Resp 16 01/21/21 05:06 BP 112/56 01/21/21 05:06 Pulse Ox 100 01/21/21 05:06 Discharge Plan Discharge Patient Disposition: Home Condition: Stable Prescriptions: New hydrocodone-acetaminophen 5-325 mg tablet 1 tab PO Q4H PRN (Reason: pain) Qty: 30 RF: 0 Colace 100 mg capsule 100 mg PO BID Qty: 60 RF: 0 Continued ibuprofen 800 mg tablet 800 mg PO TID PRN (Reason: pain) Qty: 90 RF: 0 acetaminophen 325 mg capsule 325 mg PO Q4H PRN (Reason: fever or postop pain) Qty: 60 RF: 0 Discharge Orders: Discharge Order (Routine); Ordered 01/21/21 Ordered By: Eduardo Parks Referrals: Eduardo Parks MD [Physician] - 02/02/21 1:45 pm (Your 2 week post-op appointment is scheduled for 02/02/21 @1:45. Your 6 week post-op appointment is scheduled for 03/02/21 @1:45. ) Discharge Diet: Usual diet Discharge Activity: Increase activity as tolerated Patient Instructions: Opioid Safety (DC), Vaginal Hysterectomy (DC), OB Discharge Report, OB Food/Drug Interaction Guide, Opioid Safety Activity Restrictions/Additional Instructions: 1. Please call [facility] on next working day to make your post-operative appointment in 2 weeks. 2. Please stay home until you come back to the clinic on first post-operative check up. 3. Please follow instructions on your medications CAREFULLY. 4. If you have abdominal incision, do not cover it unless dressing is necessary because of drainage. OK to shower, but avoid bath. Leave steri-strips until they fall off. If they are still on one week after surgery, you may remove them. 5. If you had vaginal surgery or vaginal repair, Dr. Parks may instruct you to take SITZ bath. 6. Yellow, blood tinged odorous vaginal discharge is usually normal after hysterectomy or vaginal surgeries. 7. No sexual intercourse, tampons, or douches until you are completely released from the post-operative care. 8. Avoid constipation by eating right and maybe using some Metamucil or Milk of Magnesia. 9. All prescription refills are given during the working hours. Please do no wait till it runs out. Call the clinic at [phone] before your medication runs out. The clinic will get in touch with your doctor to prescribe medications if necessary. 10. Please remain within 40 mile radius from our hospital because emergencies do happen now and then during the post-operative period. 11. If you have stairs at home, take one step at a time slowly and minimize the number of trips. It helps to stay in one floor for the next few days. No lifting except what you can lift by one hand until you are released from the post-operative care. 12. Driving is discouraged until you are well healed. It may be 3-4 weeks before you feel strong enough to drive. You should be able to turn and look through the rear window without pain and you should be able to push the brake pedal very hard without pain before you drive. No fast rules, but SAFETY should be your primary concern. DO NOT drive if you are on sedating medications such as narcotics. 13. Call the clinic (during working hours) to make urgent appointment or go to the Emergency room, if any of the following occurs: i. Vaginal bleeding becomes heavy, more than a period. ii. Incision becomes red and sore, or drains pus. iii. Your temperature is over 100.4 or you have chill. iv. IV site becomes red and swollen (a little ``knot?? is usually OK) v. Persistent nausea and vomiting vi. Persistent constipation or diarrhea vii. Rash or allergic reaction to medications. Discharge Attestations ACADEMIC SUPPORT DIRECTOR Time Spent in Discharge Care*: greater than 30 min Coding Level of Care Code Acute Customer Accounts Advisor for Chg Fwd Diagnoses Status post vaginal hysterectomy Z90.710
[2021-01-21 11:34] VITALS: BP 114/69; PULSE 69; RESP 18; TEMP 36.7; O2SAT 100
== END 2021-01-21 11:35 | disposition home or self-care (01) ==
LOC: OBGYN 08:56
PROVIDERS: Anesthesiology; Admitting Provider Obstetrics & Gynecology; PCP Nurse Practitioner Family; Visit Provider Obstetrics & Gynecology
PROC: (CPT 58260; principal; 2021-01-20 07:00)
DX: N99.85 Post endometrial ablation syndrome (principal); N80.9 Endometriosis, unspecified; N94.6 Dysmenorrhea, unspecified; R10.2 Pelvic and perineal pain; G89.29 Other chronic pain; F17.210 Nicotine dependence, cigarettes, uncomplicated
CPT/HCPCS: 58260; 36415; 80053; 81003; 81025; 84703; 85025; 85027; 86850; 86900; 88307; 96365; G0378; J0694; J1100; J1170; J1885; J2175; J2250; J2405; J2704; J2710; J3010; J3490; J7030; J7040; Q9968

== ENCOUNTER → 2021-03-02 14:33 | Outpatient (BNVA) | payer MEDICAID, SELFPAY | PROVIDERS: PCP Nurse Practitioner Family; Visit Provider Obstetrics & Gynecology | DX: R61 Generalized hyperhidrosis (principal); R23.2 Flushing | CPT/HCPCS: 83001; 84443 ==

== ENCOUNTER → 2021-04-08 14:03 | Outpatient (BNVA) | payer MEDICAID, SELFPAY | PROVIDERS: PCP Nurse Practitioner Family; Referring Provider Obstetrics & Gynecology; Visit Provider Internal Medicine | DX: R23.2 Flushing (principal); L68.0 Hirsutism; R61 Generalized hyperhidrosis; E01.0 Iodine-deficiency related diffuse (endemic) goiter; F17.210 Nicotine dependence, cigarettes, uncomplicated | CPT/HCPCS: 99204 ==

== ENCOUNTER 2021-04-09 16:01 | Outpatient (CLI) | payer MEDICAID, SELFPAY ==
[2021-04-09 17:02] LABS: Free T4 Free Thyroxine 1.48 ng/dL (0.82-1.77); Testosterone Total 36.1 ng/dL (8.4-48.1)
[2021-04-10 09:27] LABS: T3 Total 111 ng/dL (76-181)
[2021-04-11 14:39] LABS: Dehydroepiandrosterone Sulfate 253 mcg/dL (18-391)
[2021-04-12 14:33] LABS: Thyroid Peroxidase Antobodies <1 IU/mL (<9)
[2021-04-13 12:57] LABS: IGF1 LC/MS 237 ng/mL (53-331)
[2021-04-14 13:47] LABS: Free Cortisol Urine 19.4 mcg/24 h (4.0-50.0); Total Urine 1300 mL; Urine Creatinine 1.38 g/24 h (0.50-2.15)
[2021-04-15 12:32] LABS: Calculated Total (E+NE) 28 mcg/24 h (26-121)
[2021-04-15 18:57] LABS: TSH Receptor Binding Antibody <1.00 IU/L (< OR = 2.00)
== END 2021-04-09 16:02 | disposition home or self-care (01) ==
PROVIDERS: PCP Nurse Practitioner Family; Visit Provider Internal Medicine
DX: R23.2 Flushing (principal); E01.0 Iodine-deficiency related diffuse (endemic) goiter; L68.0 Hirsutism; R61 Generalized hyperhidrosis
CPT/HCPCS: 82384; 82530; 82627; 83516; 84305; 84403; 84439; 84443; 84480; 86376

== ENCOUNTER → 2021-05-17 13:09 | Outpatient (BNVA) | payer MEDICAID, SELFPAY | PROVIDERS: PCP Nurse Practitioner Family; Visit Provider Internal Medicine | DX: R61 Generalized hyperhidrosis (principal); R23.2 Flushing; E01.0 Iodine-deficiency related diffuse (endemic) goiter; L68.0 Hirsutism; F17.210 Nicotine dependence, cigarettes, uncomplicated | CPT/HCPCS: 99214 ==

== ENCOUNTER 2021-06-23 07:35 | Outpatient (CLI) | payer MEDICAID, SELFPAY ==
--- NOTE | 2021-06-23 08:00 | US_ITS ---
WS: [id number] THYROID ULTRASOUND HISTORY: Check thyroid COMPARISON: None available. Right lobe: 1.5 cm x 1.2 cm x 5.1 cm (w x ap x l). Volume: 4.7 cm3. Normal size and echotexture. No significant are dominant nodules are present. Left lobe: 1.3 cm x 1.2 cm x 4.1 cm (w x ap x l). Volume: 3.5 cm3. Normal size and echotexture. No significant or dominant nodules are present. Isthmus: 0.3 cm. Mildly hypoechoic RIGHT cervical chain lymph node. May be reactive. Shape and size remain normal. US/US thyroid 60411 IMPRESSION: Normal thyroid ultrasound.
== END 2021-06-23 07:36 | disposition home or self-care (01) ==
LOC: RAD 07:37
PROVIDERS: PCP Nurse Practitioner Family; Visit Provider Internal Medicine
DX: L68.0 Hirsutism (principal); R61 Generalized hyperhidrosis; E01.0 Iodine-deficiency related diffuse (endemic) goiter; R23.2 Flushing
CPT/HCPCS: 76536

== ENCOUNTER 2022-03-02 08:37 | Emergency (ER) | payer MEDICAID, SELFPAY ==
[2022-03-02 09:02] VITALS: BP 117/77; PULSE 84; RESP 14; TEMP 36.7; O2SAT 99; BMI 19.3
--- NOTE | 2022-03-02 09:13 | XRR_ITS ---
PROCEDURE INFORMATION: Exam: XR Chest Exam date and time: 03/02/2022 9:43 AM Age: 31 years old Clinical indication: Pain; On breathing; Additional info: Pain in sternum when she breaths TECHNIQUE: Imaging protocol: Radiologic exam of the chest. Views: 1 view. COMPARISON: ES surgery / GI images 11/18/2020 11:17 AM FINDINGS: Lungs: The few scattered punctate nodular densities both lung tolentino likely secondary to old granulomatous disease. Lung tolentino are clear without infiltrates or congestion. Pleural spaces: Unremarkable. No pleural effusion. No pneumothorax. Heart/Mediastinum: Unremarkable. No cardiomegaly. Bones/joints: Unremarkable for age. XR/XR chest 1V portable [id number] IMPRESSION: No active disease.
--- NOTE | 2022-03-02 09:13 | XRR_ITS ---
PROCEDURE INFORMATION: Exam: XR Thoracic Spine Exam date and time: 03/02/2022 9:43 AM Age: 31 years old Clinical indication: Pain in thoracic spine; Patient HX: Pain in sternum when she breaths; Additional info: Mid back pain TECHNIQUE: Imaging protocol: Radiologic exam of the thoracic spine. Views: 3 views. COMPARISON: ES surgery / GI images 11/18/2020 11:17 AM FINDINGS: Bones/joints: Slight scoliosis at the thoracolumbar junction convex to the patient's right otherwise alignment is unremarkable. Disc heights are maintained. No fracture or spondylolisthesis. Pedicles are intact. Soft tissues: Paraspinal soft tissues are unremarkable. XR/XR thoracic spine 3V* [id number] IMPRESSION: Normal thoracic spine.
[2022-03-02 09:26] VITALS: BP 117/77; PULSE 84; RESP 14; TEMP 36.7; O2SAT 99
--- NOTE | 2022-03-02 09:36 | ED_ITS ---
HPI - Back Pain/Injury General: Chief Complaint: Back Pain/Injury Stated Complaint: middle back pain, sob Time Seen by Provider: 03/02/22 08:40 History of Present Illness: Patient is a 31-year-old female comes to the ED with back pain. Symptoms started this morning when she woke up. Pain is located in the middle of her back and radiates to the sternum of her chest. Pain worsens with any movement or if she takes a deep breath. Denies any known injury or trauma to cause symptoms. She did not do any heavy or excessive lifting prior to back pain. She has never had back pain like this before and she rates it currently a 10 out of 10. She has not taken pain med today before coming to the ED denies any bladder or bowel incontinence, fevers, cough, chest pain, nausea/vomiting. Associated symptoms: Deny abdominal pain, chills, dysuria, fatigue, fever(s), hematuria, nausea or vomiting Review of Systems Const: Denies: fever(s), chills or fatigue Eyes: Denies: change in vision or eye discomfort ENMT: Denies: throat pain, odynophagia, nasal discharge or nasal congestion Card: Denies: chest pain, palpitations, edema, swelling of feet/ankles, dyspnea on exertion or orthopnea Resp: Denies: dyspnea, productive cough or non-productive cough GI: Denies: abdominal pain, nausea, vomiting, diarrhea, constipation or hematochezia : Denies: flank pain, dysuria or hematuria Musc: Reports: back pain; Denies: neck pain or extremity swelling Skin/Breast: Denies: rash or new lesions Neuro: Denies: headache(s), numbness in extremities or weakness in extremities PFSH ED PFSH: Medical History Aftercare following surgery of the genitourinary system Chlamydia 12/2018- positive 03/2019- positive 06/2019- needs rescreen Menorrhagia with irregular cycle Surgical History History of adenoidectomy History of tubal ligation 10/2014 S/P endometrial ablation (11/12/19) Hysteroscopy with NovaSure endometrial ablation. [place] [facility] [place] teeth extracted Family History Grandfather Diabetes maternal Hyperlipidemia maternal Hypertension maternal Grandmother Diabetes maternal Hyperlipidemia maternal Hypertension maternal Thyroid condition maternal Uterine cancer maternal Breast cancer maternal and paternal Mother Thyroid condition Uterine cancer Family/Other Breast cancer Paternal aunt Social History Smoking and tobacco status: current every day smoker cigarettes Packs smoked per day: 1 Alcohol intake: current Alcohol intake frequency: holidays/special occasions only Other details last substance use: Denies drug use Female Reproductive History: Date of last menstrual period: 12/23/19 Physical Exam Const: COMMON NORMALS: patient oriented x3 and alert GENERAL APPEARANCE: cooperative HENMT: COMMON NORMALS: normocephalic HEAD & SCALP: normocephalic MOUTH: Normal oral and palatal mucosa present THROAT: posterior oropharynx normal and uvula midline Neck/C-Spine: COMMON NORMALS: supple GENERAL: Yes normal visual inspection Resp: COMMON NORMALS: normal respiratory effort, No retractions, No use of accessory muscles and clear to auscultation bilaterally AUSCULTATION: clear to auscultation bilaterally Cardio: COMMON NORMALS: regular rate, regular rhythm, S1 normal heart sound present, S2 normal heart sound present, No gallops present (Cardio), No clicks present (Cardio), No murmurs present (Cardio) and Peripheral pulses 2+ throughout RATE: regular rate RHYTHM: regular rhythm HEART SOUNDS: S1 normal heart sound present and S2 normal heart sound present PERIPHERAL PULSES: Peripheral pulses 2+ throughout GI: COMMON NORMALS: Normal to inspection, nondistended, normoactive bowel sounds present, Soft to palpation, non-tender and no masses PALPATION: Yes Soft to palpation : COMMON NORMALS: Yes no CVA tenderness BLADDER/KIDNEY EXAM: Yes no CVA tenderness Back/Pelvis: COMMON NORMALS: no CVA tenderness THORACIC SPINE/UPPER BACK: Yes pain with ROM, Yes thoracic spinal tenderness T-spine tenderness location: T7 and T8 and Yes paraspinal muscle tenderness Thoracic paraspinal muscle tenderness: bilateral Bilateral thoracic paraspinal muscle tenderness: T7 and T8 Extremity: COMMON NORMALS: normal to inspection Neuro: COMMON NORMALS: patient oriented x3 SENSORIUM/ORIENTATION: Yes alert GAIT: Yes Normal gait present Skin: GENERAL SKIN EXAM: dry skin Course Vital Signs: Vital signs: Vital Signs Temperature 98.1 F 03/02/22 11:01 Pulse Rate 84 03/02/22 11:01 Respiratory Rate 14 03/02/22 11:01 Blood Pressure 117/77 03/02/22 11:01 Pulse Oximetry 99 03/02/22 11:01 Oxygen Delivery Me thod 03/02/22 09:26 MDM - Back Pain/Injury Medical Decision Making Patient is a 31-year-old female comes to the ED with thoracic back pain. Denies any injury or trauma to cause pain. Denies any cauda equina symptoms. Vitals are stable. Patient has some T7 and T8 paraspinal muscle tenderness bilaterally and thoracic spinal tenderness as well. Rest of exam is benign. X-ray of thoracic spine and chest showed no acute findings or fractures. She is given a dose of Toradol and Norflex here in the ED. Her symptoms improved and she was stable for discharge home. Diagnosed with back pain and discharged home with a prescription for a muscle relaxer and Celebrex. Follow-up with PCP in the next week for reevaluation. Return ED precautions given. Patient is to agree with plan. Labs Radiology Impressions Chest X-Ray 03/02/22 09:13 IMPRESSION: No active disease. Thoracic Spine X-Ray 03/02/22 09:13 IMPRESSION: Normal thoracic spine. Discharge Plan Discharge Patient Disposition: Home Clinical Impression: Back pain Qualifiers: Back pain location: thoracic back pain Chronicity: acute Back pain laterality: bilateral Qualified Code(s): M54.6 - Pain in thoracic spine Condition: Stable Prescriptions: New Celebrex 100 mg capsule 100 mg PO BID PRN (Reason: pain) Qty: 30 0RF methocarbamol 750 mg tablet 750 mg PO Q8H PRN (Reason: Back muscle spasms and pain) Qty: 20 0RF Discharge Orders: Discharge ED (Routine); Ordered 03/02/22 Ordered By: Jarek Durant Referrals: Martha Funk FNP [Primary Care Provider] - Discharge Diet: Regular Discharge Activity: Increase activity as tolerated Patient Instructions: Back Pain (ED) Activity Restrictions/Additional Instructions: Follow-up with medical provider as directed in the next 5 to 7 days for reevaluation. Take medications as prescribed. Return to the ER or your medical provider if condition worsens. Please read and understand discharge instructions. Thank you for choosing [facility] for your healthcare needs today. Please realize this is an emergency room and that we are providing you with a medical screening exam and this may not be complete and all inclusive of all the testing and or work up that you may need to determine your ailment or severity of your illness. It is very important that you follow up as instructed or that you return to the Emergency Department should you have concerns or if your condition changes or worsens in any way. Coding Level of Care Code ED Senior Manufacturing Technician for Darrius Andrade Exam Comprehensive
[2022-03-02] MEDS: ketorolac 60 mg/2 mL INJ IM (09:58)
[2022-03-02] MEDS: orphenadrine 30 mg/mL Inj 2 mL 60 MG IM (09:58)
[2022-03-02 11:01] VITALS: BP 117/77; PULSE 84; RESP 14; TEMP 36.7; O2SAT 99
== END 2022-03-02 11:02 | disposition home or self-care (01) ==
PROVIDERS: Emergency Provider Physician Assistant; PCP Nurse Practitioner Family
DX: M54.6 Pain in thoracic spine (principal); F17.210 Nicotine dependence, cigarettes, uncomplicated
CPT/HCPCS: 71045; 72072; 96372; 99284; J1885; J2360

== ENCOUNTER → 2023-06-20 13:39 | Outpatient (BNVA) | payer MEDICAID, SELFPAY | PROVIDERS: PCP Nurse Practitioner Family; Visit Provider Family Medicine | DX: R50.9 Fever, unspecified (principal); R05.9 Cough, unspecified; J02.9 Acute pharyngitis, unspecified; B34.9 Viral infection, unspecified | CPT/HCPCS: 87071; 87400; 87426; 87880 ==